=== PATIENT | female | born 1985 | race African-American/Black ===

== ENCOUNTER 2017-01-14 09:44 | Emergency (ER) | payer SELFPAY ==
[2017-01-14] MEDS ORDERED: ACETAMINOPHEN 325 MG TABLET PO ONE (10:11)
[2017-01-14] MEDS ORDERED: LIDOCAINE 2% VISCOUS SOLN 20 ML UDCUP PO ONE (10:11)
--- NOTE | 2017-01-14 10:11 | ER Document Report ---
HPI - HPI Patient complains to provider of: sore throat Pain Level: 4 Context: Patient is a 32-year-old female presents emergency department complaining of a sore throat on the left side of her throat and left ear discomfort. Patient states that she works at [employer] that she is unaware she picked up something from the patient or coworker. Patient states that it only hurts with swallowing and otherwise feels irritated. She denies any fever, chills, difficulty swallowing solids or liquids or her own saliva. Difficulty breathing. Otherwise healthy female - REPRODUCTIVE Reproductive: DENIES: : - DERM Skin Color: Normal, [place] Past Medical History - Social History Smoking Status: Current Every Day Smoker Family History: Reviewed & Not Pertinent Patient has suicidal ideation: No Patient has homicidal ideation: No Pulmonary Medical History: Denies: Hx Asthma Renal/ Medical History: Denies: Hx Peritoneal Dialysis Past Surgical History: Reports: Hx Section - x2 - Immunizations Hx Diphtheria, Pertussis, Tetanus Vaccination: Yes Vertical Provider Document - CONSTITUTIONAL Notes: PHYSICAL EXAM GENERAL: Alert, interacts well. HEAD: Normocephalic, atraumatic. EYES: Pupils equal, round, and reactive to light. Extraocular movements intact. ENT: No external auditory canal edema, erythema, pain or tenderness. Tympanic membranes without evidence of bulging, erythema, perforation. No evidence of tympanic effusion. oral mucosa moist, tongue midline. Uvula midline. Airway patent. No evidence of tonsillar enlargement, peritonsillar abscess, retropharyngeal abscess. NECK: Full range of motion. Supple. Trachea midline. LUNGS: Clear to auscultation bilaterally, no wheezes, rales, or rhonchi. No respiratory distress. HEART: Regular rate and rhythm. No murmurs, gallops, or rubs. NEUROLOGICAL: Alert and oriented x4. Normal speech. PSYCH: Normal affect, normal mood. SKIN: Warm, dry, normal turgor. No rashes or lesions noted. - INFECTION CONTROL TRAVEL OUTSIDE OF THE [place] IN LAST 30 DAYS: No - RESPIRATORY O2 Sat by Pulse Oximetry: 98 Course - Re-evaluation Re-evalutation: 01/14/17 11:07 Patient is a 32-year-old female is hemodynamically stable, no acute distress and afebrile. Physical exam is benign for any findings concerning for airway compromise. Rapid strep was negative. Patient is stable for discharge home with supportive measures and to follow-up with primary care as needed. - Vital Signs Vital signs: Temp Pulse Resp BP Pulse Ox 98.5 F 96 16 115/69 98 01/14/17 09:52 01/14/17 09:52 01/14/17 09:52 01/14/17 09:52 01/14/17 09:52 Discharge - Discharge Clinical Impression: Sore throat Condition: Good Disposition: HOME, SELF-CARE Instructions: Sore Throat ([facility]) Additional Instructions: Please be sure to drink plenty of fluids. If you are still having symptoms in approximately 2 weeks please follow-up with provider noted on discharge paperwork . Forms: Return to Work Referrals: DANIELLE KENDRICK, [ASSOCIATE] - Follow up as needed
[2017-01-14 11:19] VITALS: BP 109/65
== END 2017-01-14 11:20 | disposition home or self-care (01) ==
LOC: ER 09:44
DX: J02.9 Acute pharyngitis, unspecified (principal); F17.200 Nicotine dependence, unspecified, uncomplicated
CPT/HCPCS: 99282; 87070; 87880; J3490

== ENCOUNTER 2017-11-16 01:54 | Emergency (ER) | payer SELFPAY ==
--- NOTE | 2017-11-16 04:41 | RADIOLOGY REPORT (SQ) ---
EXAM DESCRIPTION: XR TIBIA FIBULA 2 VIEWS COMPLETED DATE/TME: 11/16/2017 03:39 CLINICAL HISTORY: 32 years, Female, eval for foreign body COMPARISON: None. FINDINGS: 2 views of the left tibia and fibula. No acute fracture or dislocation. Normal osseous mineralization. Small amount of subcutaneous air in the anterior soft tissues at the level of the mid tibia. No foreign body. IMPRESSION: 1. No acute fracture. No radiopaque foreign body. 2010 [employer]- All Rights Reserved
--- NOTE | 2017-11-16 04:43 | RADIOLOGY REPORT (SQ) ---
EXAM DESCRIPTION: XR FOOT 3 OR MORE VIEWS COMPLETED DATE/TME: 11/16/2017 03:39 CLINICAL HISTORY: 32 years, Female, eval for foreign body COMPARISON: None. FINDINGS: 3 views of the left foot. No acute fracture or dislocation. Normal osseous mineralization. No radiopaque foreign bodies. Subcutaneous air at the medial aspect of the foot. IMPRESSION: 1. No acute fracture. No radiopaque foreign body. 2010 [employer]- All Rights Reserved
[2017-11-16] MEDS ORDERED: LIDOCAINE 1% INJ-PF (10 MG/ML) 30 ML SDV INJ ONE (05:28)
[2017-11-16] MEDS ORDERED: OXYCODONE-ACETAMINOPHEN 5-325 MG TABLET PO ONE (06:13)
[2017-11-16] MEDS ORDERED: CEPHALEXIN 500 MG CAPSULE PO ONE (06:30)
--- NOTE | 2017-11-16 06:35 | ER Document Report ---
ED Extremity Problem, Lower - General Chief Complaint: Leg Injury Stated Complaint: LEG,FOOT INJURY Time Seen by Provider: 11/16/17 03:19 Mode of Arrival: Wheelchair Information source: Patient Notes: Patient presents with multiple lacerations to her left lower extremity. Patient reports she was walking through some tall grass and is unsure how the injury occurred. Patient reports that her tetanus is up to date. TRAVEL OUTSIDE OF THE [place] IN LAST 30 DAYS: No - Related Data Allergies/Adverse Reactions: No Known Allergies Allergy (Unverified 07/25/13 17:51) Past Medical History - General Information source: Patient - Social History Smoking Status: Never Smoker Frequency of alcohol use: None Drug Abuse: None Family History: Reviewed & Not Pertinent Patient has suicidal ideation: No Patient has homicidal ideation: No - Medical History Medical History: Negative Pulmonary Medical History: Denies: Hx Asthma Renal/ Medical History: Denies: Hx Peritoneal Dialysis Past Surgical History: Reports: Hx Section - x2 - Immunizations Hx Diphtheria, Pertussis, Tetanus Vaccination: Yes History of Influenza Vaccine for 01/2017 - 06/2017 Season: No Review of Systems - Review of Systems Constitutional: No symptoms reported EENT: No symptoms reported Cardiovascular: No symptoms reported Respiratory: No symptoms reported Gastrointestinal: No symptoms reported Genitourinary: No symptoms reported Female Genitourinary: No symptoms reported Musculoskeletal: No symptoms reported Skin: See HPI Hematologic/Lymphatic: No symptoms reported Neurological/Psychological: No symptoms reported Physical Exam - Vital signs Vitals: Temp Pulse Resp BP Pulse Ox 99.3 F 111 H 20 141/93 H 98 11/16/17 02:00 11/16/17 02:00 11/16/17 02:00 11/16/17 02:00 11/16/17 02:00 - Notes Notes: PHYSICAL EXAMINATION: GENERAL: Well-appearing, well-nourished and in no acute distress. HEAD: Atraumatic, normocephalic. EYES: Pupils equal round extraocular movements intact, conjunctiva are normal. ENT: Nares patent NECK: Normal range of motion LUNGS: No respiratory distress Musculoskeletal: Normal range of motion NEUROLOGICAL: Normal speech, normal gait. PSYCH: Normal mood, normal affect. SKIN: Warm, Dry, normal turgor, no rashes. 2 small lacerations and 2 abrasions noted to left lower extremity, see diagram. Course - Re-evaluation Re-evalutation: Patient with 2 superficial lacerations to the bottom of her left foot, one measuring approximately 0.5 cm. These lacerations would benefit from sutures. I did order a suture tray and attempted to anesthetize lacerations. Patient take the syringe out of my hand and is now refusing for them to be sutured. Attempted to calm the patient and explained to her that once the lidocaine is in effect the pain should subside. Patient will not allow me to suture the lacerations. I will apply Dermabond after cleansing the wounds. The wounds to her left huerta and left ankle are not appropriate for Dermabond, they would also benefit from sutures however they are superficial. Patient will be given instructions on wound care, wounds will be left unsutured per her request and against my advice. Patient will be placed on cephalexin for infection prophylaxis. Patient given extensive instructions on signs and symptoms of infection to watch for. - Vital Signs Vital signs: Temp Pulse Resp BP Pulse Ox 98.8 F 89 16 126/86 H 97 11/16/17 06:46 11/16/17 06:46 11/16/17 06:46 11/16/17 06:46 11/16/17 06:46 Procedures - Laceration/Wound Repair Left lower extremity Wound length (cm): 1 Wound's Depth, Shape: Superficial Laceration pre-procedure: Gonzales applied Anesthetic type: 1% Lidocaine Wound Repaired With: Dermabond Adult Front & Back picture: 1 - abrasion 2 - abrasion Discharge - Discharge Clinical Impression: Laceration Condition: Stable Disposition: HOME, SELF-CARE Additional Instructions: Dermabond (Skin Adhesive Closure) Skin adhesive (such as Dermabond) is a quick-drying glue that remains slightly flexible while it holds wound edges together. It can substitute for stitches on some cuts. The film will usually fall off the skin after 5 to 10 days. Keep the wound area clean and dry. Do not soak or scrub the wound. Don't swim. You can shower briefly after 24 hours. Gently blot the area dry with a soft towel. Don't apply ointments. If there is a dressing, change it immediately if it gets wet. Do not place tape directly over the adhesive film, because the tape may pull the film off your skin as you remove it. Don't bump the wound area. If there's risk of injury, keep the area well- padded. Avoid stretching of the skin. Do not scratch or pick at the adhesive film. Avoid prolonged exposure to sunlight or tanning lamps. Return if there is increasing pain, swelling, redness, or drainage, or if the wound edges seem to open or separate. Please use bacitracin or another antibiotic ointment to the wound on your huerta and on your ankle. Keep clean and dry. Take the antibiotics as prescribed. You declined suturing of the lacerations to your foot. I did use Dermabond to the area, do not place any ointment on this as it will break down the glue. Try to stay off of the foot, use the crutches. Please return if you develop any signs of infection such as increased redness, swelling, foul- smelling drainage or fever. Prescriptions: Cephalexin Monohydrate [Keflex 500 mg Capsule] 500 mg PO Q6H 5 Days #20 capsule Forms: Return to Work
[2017-11-16 06:57] VITALS: BP 126/86
== END 2017-11-16 06:52 | disposition home or self-care (01) ==
LOC: ER 01:54
DX: S91.312A Laceration without foreign body, left foot, initial encounter (principal); S80.811A Abrasion, right lower leg, initial encounter; X58.XXXA Exposure to other specified factors, initial encounter
CPT/HCPCS: 99283; 73630; 73590; 12001; J3490